=== PATIENT | male | born 2000 | race African-American/Black ===

== ENCOUNTER 2018-09-10 04:51 | Emergency (ER) | payer OTHER ==
[2018-09-10] MEDS: Lidocaine 1% 5ml 10 MG/ML VIAL IJ ONE (05:00)
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
[2018-09-10 06:08] VITALS: BP 114/60
== END 2018-09-10 05:57 | disposition home or self-care (01) ==
LOC: ED 04:51
DX: S61.011A Laceration without foreign body of right thumb without damage to nail, initial encounter (principal); X99.0XXA Assault by sharp glass, initial encounter; Y93.89 Activity, other specified; Y92.89 Other specified places as the place of occurrence of the external cause
CPT/HCPCS: 12002; 29130; 99283; J7030